=== PATIENT | female | born 1985 | race Caucasian/White ===

== ENCOUNTER 2017-11-08 03:55 | Inpatient (IN) | payer SELFPAY ==
[2017-11-08] MEDS ORDERED: Propofol 1,000 MG/100 ML VIAL IV ONE (04:05)
[2017-11-08 04:34] LABS: #Basophils 0.1 thou/uL (0.0-0.2); #Eosinphils 0.1 thou/uL (0.0-0.7); #Lymphocytes 1.7 thou/uL (1.20-3.40); #Monocytes 0.6 thou/uL (0.11-0.59); %Basophils 0.7 % (0.0-1.0); %Eosinophils 0.6 % (0.0-10.0); %Lymphocytes 16.1 % (21.0-51.0); %Monocytes 5.8 % (0.0-10.0); %Neutrophils 76.8 % (42.0-75.0); Hemoglobin 13.2 g/dL (12.0-16.0); Mean Corpuscular HGB CONC 34.9 g/dL (32.0-36.0); Mean Corpuscular Hemoglobin 33.5 pg (27.0-31.0); Mean Platelet Volume 7.2 fL (7.4-10.4); Platelet Count 256 thou/uL (130-400); RBC Distribution Width 11.7 % (11.5-14.5); Red Blood Cell (RBC) Count 3.93 mill/uL (4.20-5.40); White Blood Cell (WBC) Count 10.4 thou/uL (4.8-10.8)
[2017-11-08 04:39] LABS: BHCG - Serum Negative (NEGATIVE); Pregs Control Background? CLEAR/WHITE (CLR/WHITE); Pregs Control Bar Appear? YES (CONTROL BAR)
[2017-11-08 04:42] LABS: Bilirubin Negative (Negative); Blood, Urine Trace (Negative); Clarity CLEAR (Clear); Glucose, Urine (Dipstick) Negative (Negative); Leukocyte Negative (Negative); Nitrite Negative (Negative); Protein, Urine (Dipstick) 30 mg/dL (Neg-Trace); Specific Gravity, Urine 1.007 (1.002-1.036); Urobilinogen 0.2 mg/dL (0.2-1.0)
[2017-11-08 04:45] LABS: Bacteria/HPF None Seen HPF (None Seen); Hyaline Casts/LPF 4-6 HYALINE CAST LPF (0-3 Hyaline); Pathc Cast-AUWi Flag 1.16 (0-2.49); RBC/HPF 0-3 HPF (0-3); WBC/HPF 0-3 HPF (0-3)
[2017-11-08 04:46] LABS: Acetaminophen Less than 6.0 mcg/mL (10.0-30.0); Alcohol 99 mg/dL (Less than 10); Salicylate Less than 8.0 mg/dL (15.0-30.0)
[2017-11-08 04:49] LABS: ALT (SGPT) 24 U/L (8-55); AST (SGOT) 21 U/L (5-34); Alkaline Phosphatase 46 U/L (40-150); Anion Gap 13 mmol/L (10-20); BUN (Urea Nitrogen) 9 mg/dL (7.0-18.7); Bilirubin, Total 0.4 mg/dL (0.2-1.2); CK (CPK) 166 U/L (29-168); Calc. Creatinine Clearance 0 mL/min (70-130); Calcium 8.4 mg/dL (7.8-10.44); Carbon Dioxide 19 mmol/L (22-29); Chloride 113 mmol/L (98-107); Estimated GFR-MDRD 83; Globulin 3.1 g/dL (2.4-3.5); Glucose 133 mg/dL (70-105); Lipase 31 U/L (8-78); Potassium 3.9 mmol/L (3.5-5.1); Protein, Total 7.1 g/dL (6.0-8.3); Sodium 141 mmol/L (136-145)
[2017-11-08 04:52] LABS: CO2 Tension 31.4 mmHg (35.0-45.0); pH, Arterial 7.42 (7.35-7.45)
[2017-11-08 04:52] LABS: CKMB 1.6 ng/mL (0-6.6); Troponin I Less than 0.010 ng/mL (< 0.028)
[2017-11-08 04:53] LABS: Actual Bicarbonate (HCO3a) 19.8 mEq/L (22-26); Analyzer IN Cardio ER; Base Excess (BEa) -3.7 mEq/L (0 (+/-) 2.5); Calcium, Ionized 1.2 mmol/L (1.12-1.30); Hemoglobin (Hb) 12.6 g/dL (12.0-16.0)
[2017-11-08 04:53] LABS: Amphetamine Not Detected (NotDetected); Barbiturates Screen Not Detected (NotDetected); Benzodiazepine Screen Not Detected (NotDetected); Cocaine Metabolite Screen Not Detected (NotDetected); Medtox Control Line Valid? VALID (VALID); Medtox Reader # READER 1; Methadone Not Detected (NotDetected); Methamphetamine Not Detected (NotDetected); Opiate Screen Not Detected (NotDetected); Oxycodone Screen Not Detected (NotDetected); Phencyclidine (PCP) Not Detected (NotDetected); THC/Cannabinoid Screen Detected (NotDetected); Tricyclic Screen Not Detected (NotDetected)
[2017-11-08 04:54] LABS: Puncture Site RRA
[2017-11-08 05:06] LABS: Thyroid Stimulating Hormone 1.3615 uIU/mL (0.35-4.94)
[2017-11-08] MEDS ORDERED: Ondansetron HCl/PF 4 MG/2 ML Vial IVP PRN (05:29)
[2017-11-08] MEDS ORDERED: CCU Electrolyte Replacement 1 EACH IVPB SCH (05:29)
[2017-11-08] MEDS ORDERED: Acetaminophen 650 MG Suppository PR PRN (05:29)
[2017-11-08] MEDS ORDERED: Milk Of Magnesia 30 ML UDCUP PO PRN (05:29)
[2017-11-08] MEDS ORDERED: Ventilator Sedation Protocol 1 EACH FS SCH (05:30)
[2017-11-08] MEDS ORDERED: Potassium Phosphate 15 MMOL in Sodium Chloride 0.9% 250 ML 250 ML IV PRN (05:41)
[2017-11-08] MEDS ORDERED: CCU ELECTROLYTE REPLACEMENT PROTOCOL FS PRN (05:41)
[2017-11-08] MEDS ORDERED: Potassium Chloride 20 MEQ TAB PO PRN (05:41)
[2017-11-08] MEDS ORDERED: Potassium Chloride 40 MEQ in Sodium Chloride 0.9% 250 ML 250 ML IVPB PRN (05:41)
[2017-11-08] MEDS ORDERED: Magnesium 2 GM/NS 0.9% 100 ML 2 GM in Premix Bag 1 BAG IVPB PRN (05:41)
[2017-11-08] MEDS ORDERED: Potassium Phosphate 9 MMOL in Sodium Chloride 0.9% 100 ML IVPB PRN (05:41)
[2017-11-08] MEDS ORDERED: Potassium Chloride 40 MEQ in Premix Bag 1 BAG IVPB PRN (05:41)
[2017-11-08] MEDS ORDERED: Magnesium Oxide 400 MG TAB PO PRN ×2 (05:41)
[2017-11-08] MEDS ORDERED: Potassium Phosphate 12 MMOL in Sodium Chloride 0.9% 250 ML 250 ML IV PRN (05:41)
[2017-11-08] MEDS ORDERED: Propofol BOLUS 1,000 MG/100 ML VIAL IV PRN (05:42)
[2017-11-08] MEDS ORDERED: Fentanyl BOLUS 250 ML IVPB PRN (05:42)
[2017-11-08] MEDS ORDERED: fentaNYL Citrate/PF 2,000 MCG in Sodium Chloride 0.9% 60 ML IV SCH (05:42)
[2017-11-08] MEDS ORDERED: Morphine 4 MG/ML VIAL SLOW IVP PRN (05:42)
[2017-11-08] MEDS ORDERED: DISCONTINUE PREVIOUS NARCOTIC PAIN MEDICATIONS AND BENZODIAZEPINES FS SCH (05:42)
[2017-11-08] MEDS ORDERED: Labetalol HCl 100 MG/20 ML VIAL SLOW IVP PRN (05:57)
--- NOTE | 2017-11-08 06:13 | HP ---
PRIMARY CARE PHYSICIAN: None. PRESENTING COMPLAINT: Overdosed on medications. HISTORY OF PRESENT ILLNESS: Ms. Malik Pablo is a 32-year-old female with a past medical history of hypertension, bipolar disorder, alcohol dependence and schizophrenia, who has been off medications for an extended period of time, who was brought to the [facility] after she overdosed on medications. She was said to have got into her grandfather's medicine cabinet and took multiple pills including muscle relaxer and blood pressure medications. When she was taken to the [place], her heart rate was about 46 and her Arden coma scale was about 5. She was then intubated for airway protection. LABORATORY DATA: Show fairly normal CBC as well as serum chemistry with slightly reduced bicarbonate of 19. Ammonia was 46. Troponin was less than 0.010. test was negative. Blood gas showed pH of 7.42 with pO2 of 377 and pCO2 of 31. Urine toxicology was positive for cannabis and elevated plasma alcohol level. She had a brain CT and chest x-ray done, which showed no acute pathology. She has been admitted for acute respiratory failure and medication overdose. PAST MEDICAL HISTORY: As stated in the HPI. PAST SURGICAL HISTORY: None. FAMILY HISTORY: Reviewed and noncontributory. SOCIAL HISTORY: She has a history of significant alcohol intake, taking at least 10 drinks on a daily basis. Date of last drink is unknown. She also smokes marijuana and smokes cigarettes (1 pack per day). ALLERGIES: No known drug allergies according to family. HOME MEDICATIONS: None. REVIEW OF SYSTEMS: Unable to obtain as the patient is intubated and sedated. PHYSICAL EXAMINATION: VITAL SIGNS: Blood pressure 175/126, pulse rate 77, oxygen saturation 100% on mechanical ventilation, respiratory rate 12. CONSTITUTIONAL: Not in acute distress, intubated and sedated, looks comfortable. NECK: Supple. No JVD. RESPIRATORY: Reduced breath sounds bilaterally with bronchial sounds. CARDIOVASCULAR: S1 and S2, only regular rate and rhythm. No murmurs, rubs, or gallops. ABDOMEN: Soft, nontender, nondistended. Bowel sounds normoactive. EYES: Dilated. Pupils are minimally responsive to light. NEUROLOGIC: Unable to cooperate with examination as she is sedated. SKIN: Warm, dry, well perfused. No rashes or lesions. PSYCHIATRIC: Unable to assess. MUSCULOSKELETAL: No edema. No skeletal abnormalities. IMAGING: As stated in HPI. LABORATORY DATA: Showed no significant abnormalities apart from bicarbonate of 19 and urine toxicology positive for cannabinoids and elevated plasma-alcohol level. ASSESSMENT AND PLAN: 1. Acute respiratory failure: This is likely secondary to medication overdose. However, the exact medications she took is unclear. While at the [place], she has been given a dose of Narcan, 5 mg IV of metoprolol, midazolam, a liter of normal saline, fentanyl, ketamine, and Romazicon. We will monitor her vital signs closely, repeat labs, VAP bundle, trend troponin. Pepcid 20 mg q.12 hours. 2. Intentional Medication overdose: As above. 3. Hypertensive urgency: Patient has a history of hypertension, but has not taken any medications in a while. We will place on p.r.n. hydralazine and labetalol for systolic blood pressure greater than 180. 4. Alcohol Dependence. Patient is reportedly dependent on alcohol and drinks 10 alcoholic drinks daily. We will place on CIWA protocol. 5. Hypothermia. This is likely also from medications. She has been placed on a Darvin Hugger. We will monitor vital signs closely. We will consult Pulmonary. CODE STATUS: FULL CODE. Deep venous thrombosis prophylaxis, enoxaparin. MTDD
[2017-11-08] MEDS ORDERED: Multivitamins, Adult 10 ML, Folic Acid 1 MG, Thiamine HCl 100 MG in Dextrose 5 %-0.45 %... IV ONE (07:00)
[2017-11-08 09:16] LABS: Troponin I Less than 0.010 ng/mL (< 0.028)
--- NOTE | 2017-11-08 09:26 | RAD ---
CHEST 1 VIEW: Date: 11/08/17 HISTORY: Overdose. Intubated. COMPARISON: Earlier exam on the same date. FINDINGS: Cardiac silhouette magnified. Pulmonary vasculature upper limits of normal. Mediastinum midline. Endo tracheal catheter unchanged in position. Nasogastric tube descends to the abdomen with the proximal p ort at the level of the GE junction. No lobar consolidation or evidence of pneumothorax. Old left rib fracture now evident. IMPRESSION: Nasogastric tube proximal port at the level of the GE junction. Please consider advancing approximate ly 10.0 cm for better positioning. POS: [facility]
[2017-11-08] MEDS: Famotidine 40 MG/4 ML VIAL SLOW IVP SCH ×2 (10:00→20:24)
--- NOTE | 2017-11-08 10:57 | CT ---
PRELIMINARY REPORT/[facility]/EMERGENTY AFTER-HOURS PROCEDURE CT Head Without Intravenous Contrast EXAM DATE/TIME: Exam ordered 11/08/2017 4:33 AM CLINICAL HISTORY: 32 years old, female; Signs and symptoms; Altered mental status/memory loss; Patient HX: Od on multip le meds, intubated at ed, 21 at the lip. BP is 160/110. BP has been elevated since intubation. Pt giv en metoprolol. Pt has HX of HTN, schizo, depression and bipolar. Pt has attempted suicide via od in the past. Pt was breathing 6 times a minute prior to intubation. TECHNIQUE: Axial computed tomography images of the head/brain without intravenous contrast. COMPARISON: No relevant prior studies available. FINDINGS: Brain: Mild generalized volume loss of the brain. No hemorrhage. No significant white matter disease. Ventricles: Unremarkable. No ventriculomegaly. Bones/joints: Unremarkable. No acute fracture. Soft tissues: Unremarkable. Sinuses: Unremarkable as visualized. No acute sinusitis. Mastoid air cells: Unremarkable as visualized. No mastoid effusion. IMPRESSION: No acute findings. Thank you for allowing us to participate in the care of your patient. Dictated and Authenticated by: Kevin Mcmillan MD 11/08/2017 5:00 AM Central Time ([place] & [place]) FINAL REPORT EMERGENCY AFTER HOURS CT HEAD NONCONTRAST: Date: 11/08/17 Time: 0434 hours HISTORY: Altered mental status. FINDINGS/IMPRESSION: Findings agree with the preliminary report by Wes. No acute intracranial abnormalities are demonstra brandee on noncontrast CT head. POS: [facility]
[2017-11-08] MEDS: Enoxaparin Sodium 40 MG/0.4 ML SYRINGE SC SCH (11:02)
--- NOTE | 2017-11-08 17:44 | CON ---
DATE OF CONSULTATION: 11/08/2017 HISTORY OF PRESENT ILLNESS: A 32-year-old female, status post overdose, status post intubation for m ental status change and mother at the bedside. 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 Patient stay s with her mother. She has a history of excessive alcohol intake. Apparently, she is unemployed, bu t apparently drinks 10 drinks a day. Smokes marijuana. She went to visit her grandparents where she took grandparent's medication and then shortly thereafter called 911. In [place], she had a Gl asgow coma score of 5. She was intubated and transferred here. She is on Diprivan. She is still intubated. Diprivan is being turned off. Medicine presumably taken from her dad include some kind of muscle relaxer, though patient was given several different medications in [place] prior to intubation, 100 of fentanyl, Versed 4 mg, aman mine 200 mg, Narcan 0.4, Romazicon 0.5, metoprolol 5 mg. PAST MEDICAL HISTORY: Pertinent for bipolar disorder, substance abuse, tobacco abuse. She sees [facility] in [place]. It is unclear whether she is still seeing them, unable to verify the medication. PAST SURGICAL HISTORY: Tonsillectomy. REVIEW OF SYSTEMS: Unobtainable. PHYSICAL EXAMINATION: VITAL SIGNS: She is off sedation, breathing 10 times with the vent. Pulse 81, blood pressure is 153 /100, sats 90%. CHEST: Decreased breath sounds, no wheezing. CARDIAC: Normal S1, S2, no gallops. ABDOMEN: Soft. NEUROLOGIC: Sedated. LABORATORY DATA: White count 10,000, H and H 13 and 34, platelet count normal. PO2 is 377, pCO2 31% FiO2 100%. Electrolytes are normal. Toxicology screen reveals cannabinoids. Alcohol level of 99. Salicylate is normal. Chest x-ray is clear. IMPRESSION: 1. Overdose on an unknown medication, presumably some kind of muscle relaxer. 2. History of bipolar disorder. 3. Alcohol abuse. We will hold sedation. Otherwise, continue banana bag, IV fluids hydration, DVT prophylaxis as meenakshi ated. When she is awake and responsive, we will extubate and wean. [id number] critical care time.
[2017-11-08] MEDS: D5 1/2 NS w/20 mEq KCL 1,000 ML IV SCH (18:15)
[2017-11-09 04:52] LABS: Band 5 % (5-11); Hemoglobin 12.1 g/dL (12.0-16.0); Lymphocytes 9 % (21-51); MDiff Complete? YES; Mean Corpuscular HGB CONC 33.6 g/dL (32.0-36.0); Mean Corpuscular Volume 98.3 fl (81.0-99.0); Mean Platelet Volume 7.7 fL (7.4-10.4); Monocytes 9 % (0-10); Neutrophil 77 % (42-75); PLT Morphology Comment Appears Adequate; Platelet Count 168 thou/uL (130-400); RBC Distribution Width 11.8 % (11.5-14.5); Red Blood Cell (RBC) Count 3.67 mill/uL (4.20-5.40); White Blood Cell (WBC) Count 12.7 thou/uL (4.8-10.8)
[2017-11-09 05:03] LABS: ALT (SGPT) 21 U/L (8-55); AST (SGOT) 17 U/L (5-34); Albumin 3.8 g/dL (3.5-5.0); Alkaline Phosphatase 46 U/L (40-150); Anion Gap 14 mmol/L (10-20); BUN (Urea Nitrogen) 16 mg/dL (7.0-18.7); Bilirubin, Total 0.6 mg/dL (0.2-1.2); Calc. Creatinine Clearance 57 mL/min (70-130); Calcium 8.4 mg/dL (7.8-10.44); Carbon Dioxide 21 mmol/L (22-29); Chloride 115 mmol/L (98-107); Estimated GFR-MDRD 35; Globulin 2.8 g/dL (2.4-3.5); Glucose 141 mg/dL (70-105); Magnesium 1.9 mg/dL (1.6-2.6); Phosphorus 4.4 mg/dL (2.3-4.7); Potassium 4.3 mmol/L (3.5-5.1); Protein, Total 6.6 g/dL (6.0-8.3); Sodium 146 mmol/L (136-145)
[2017-11-09 06:45] LABS: Puncture Site RB
[2017-11-09 06:47] LABS: Actual Bicarbonate (HCO3a) 23.1 mEq/L (22-26); Base Excess (BEa) -2.2 mEq/L (0 (+/-) 2.5); CO2 Tension 41.6 mmHg (35.0-45.0); pH, Arterial 7.36 (7.35-7.45)
[2017-11-09 06:48] LABS: Calcium, Ionized 1.2 mmol/L (1.12-1.30); Hematocrit-ABG 35.8 % (36.0-47.0); Hemoglobin (Hb) 11.8 g/dL (12.0-16.0)
--- NOTE | 2017-11-09 08:49 | RAD ---
CHEST 1 VIEW: Date: 11/09/17 HISTORY: Ventilated patient. Respiratory distress. COMPARISON: 11/08/17. FINDINGS: Portable semiupright chest radiograph demonstrates an endotracheal tube and nasogastric tube. Diminis hed lung volumes. Patchy opacities in the right lung base. No pneumothorax. Stable configuration of t he cardiac silhouette. IMPRESSION: 1. ET and NG tubes as above. 2. Patchy opacities in right lung base, similar to the previous examination. Continued surveillance. POS: [facility]
--- NOTE | 2017-11-09 08:53 | PRG ---
DATE OF SERVICE: 11/09/2017 Overdose on baclofen and losartan, atenolol, apparently her grandfather's medications, unknown quanti ty that was taken. PHYSICAL EXAMINATION: VITAL SIGNS: Sats are 94 on 28% FiO2, pulse 76, blood pressure 139/75, respiration 20. GENERAL: She is encephalopathic, though she does squeeze and moves all 4 extremities. She has had no sedation now in the last 24 hours, I's and O's are 1754 in, 1684 out. CHEST: Chest reveals decreased breath sounds, no wheezing. CARDIAC: Normal S1, S2, no gallops. ABDOMEN: Soft. NEURO: Neurologically encephalopathic. LABORATORY: White count 12,000, H&H 12 and 36, platelet count 168, pO2 is 93, pCO2 41.36, rate of 10 . Creatinine is increased to 1.7. IMPRESSION: 1. Bipolar schizophrenic. 3. Overdose. 3. Major depression. 4. Renal failure. PLAN: Continue slow hydration. Start low dose nutrition. Avoid sedation. When she wakes up. consi sreekanth weaning. She needs ongoing counseling. One-half hour critical care time.
[2017-11-09] MEDS: Enoxaparin Sodium 40 MG/0.4 ML SYRINGE SC SCH (09:00)
[2017-11-09] MEDS ORDERED: Propofol 1,000 MG/100 ML VIAL IV ONE ×2 (10:44→15:26)
[2017-11-09] MEDS: Famotidine 40 MG/4 ML VIAL SLOW IVP SCH ×2 (11:47→20:33)
[2017-11-09] MEDS: Thiamine HCl 200 MG/2 ML VIAL SLOW IVP SCH (11:48)
[2017-11-09] MEDS: D5 1/2 NS w/20 mEq KCL 1,000 ML IV SCH ×2 (11:55→20:31)
--- NOTE | 2017-11-09 12:40 | PDOC.PN ---
- Subjective Encounter Start Date: 11/09/17 Encounter Start Time: 09:30 -: old records requested/rev Follow up for overdose, encephaloapthy, acute hypoxemic respiratory failure Pt seen and examined, chart reviewed in its entirety, this is my first vist with this patient Admitted yesterdday with toxic encephalopathy after intentional overdose with parent's medicine, assumed muscle relaxants. Pt off of sedation, no purposeful movement, told SIMV, labs reviewed. Mom at bedside. Discussed advanced care plan, current plan is to continue full support and give time for medicines to wear off. No F/C, no D/c, no acute events overnight otherwise. ROs not obtainable due to encephalopathy - Objective Resuscitation Status: Resuscitation Status FULL:Full Resuscitation MAR Reviewed: Yes Vital Signs & Weight: Vital Signs (12 hours) Temp Pulse Resp BP Pulse Ox 11/09/17 12:00 99.1 F 13 11/09/17 10:49 111 H 183/110 H 11/09/17 10:00 14 11/09/17 08:46 75 139/75 11/09/17 08:00 99.5 F 111 H 16 98 11/09/17 05:57 10 L 11/09/17 04:00 98.7 F 10 L 11/09/17 02:45 64 11/09/17 02:00 12 Weight Weight 178 lb 9.191 oz Most Recent Monitor Data Heart Rate from ECG 94 NIBP 134/81 NIBP BP-Mean 98 Respiration from ECG 17 SpO2 93 I&O: 11/08/17 11/09/17 11/10/17 06:59 06:59 06:59 Intake Total 1754 Output Total 1685 315 Balance 69 -315 Result Diagrams: 11/09/17 04:20 11/09/17 04:20 Additional Labs: Accuchecks 11/08/17 19:57 POC Glucose 125 H Radiology Reviewed by me: Yes EKG Reviewed by me: Yes Phys Exam - Physical Examination Constitutional: NAD HEENT: PERRLA, moist MMs, sclera anicteric, oral pharynx no lesions Neck: no nodes, no JVD, supple, full ROM Respiratory: no wheezing, no rales, no rhonchi, clear to auscultation bilateral Cardiovascular: RRR, no significant murmur, no rub Gastrointestinal: soft, non-tender, no distention, positive bowel sounds Musculoskeletal: pulses present, edema present Lymphatic: no nodes Skin: no rash, normal turgor, cap refill <2 seconds Dx/Plan (1) Toxic metabolic encephalopathy Code(s): G92 - TOXIC ENCEPHALOPATHY Status: Acute Comment: moved and squeezed hands per Dr Landon. hold sedatives, allow to wake. (2) Acute hypoxemic respiratory failure Code(s): J96.01 - ACUTE RESPIRATORY FAILURE WITH HYPOXIA Status: Acute Comment: wean vent when wakes up (3) Intentional overdose of drug in tablet form Code(s): T50.902A - POISONING BY UNSP DRUG/MEDS/BIOL SUBST, SELF-HARM, INIT Status: Acute Comment: baclofen, atenolol, losartan, by history (4) Bipolar 1 disorder Code(s): F31.9 - BIPOLAR DISORDER, UNSPECIFIED Status: Chronic (5) Schizophrenia Code(s): F20.9 - SCHIZOPHRENIA, UNSPECIFIED Status: Chronic Qualifiers: Schizophrenia type: unspecified Qualified Code(s): F20.9 - Schizophrenia, unspecified (6) CITLALI (acute kidney injury) Code(s): N17.9 - ACUTE KIDNEY FAILURE, UNSPECIFIED Status: Acute Comment: Cr 0.8 up to 1.70. monitor, hydrate - Plan cont current plan of care, plan discussed w/ family, respiratory therapy, DVT proph w/SCDs 16 minutes of the visit were spent discussing advanced care plan * .
[2017-11-09 15:00] LABS: Actual Bicarbonate (HCO3a) 60.9 mEq/L (22-26); O2 Tension (PaO2) 60.9 mmHg (80.0-100.0); pH, Arterial 7.41 (7.35-7.45)
[2017-11-09 15:01] LABS: Base Excess (BEa) -1.2 mEq/L (0 (+/-) 2.5)
[2017-11-09 15:02] LABS: Hematocrit-ABG 34.8 % (36.0-47.0); Hemoglobin (Hb) 11.8 g/dL (12.0-16.0)
[2017-11-09 15:03] LABS: Calcium, Ionized 1.2 mmol/L (1.12-1.30); Puncture Site LR
[2017-11-09] MEDS: Propofol 1,000 MG/100 ML VIAL IV PRN (20:50)
[2017-11-10] MEDS: Propofol 1,000 MG/100 ML VIAL IV PRN ×5 (01:28→22:21)
[2017-11-10] MEDS: hydrALAZINE 20 MG/ML VIAL SLOW IVP PRN (04:48)
[2017-11-10 04:55] LABS: Hemoglobin 11.6 g/dL (12.0-16.0); Mean Corpuscular HGB CONC 33.9 g/dL (32.0-36.0); Mean Corpuscular Hemoglobin 33.2 pg (27.0-31.0); Mean Corpuscular Volume 97.7 fl (81.0-99.0); Mean Platelet Volume 8.5 fL (7.4-10.4); Platelet Count 142 thou/uL (130-400); RBC Distribution Width 11.7 % (11.5-14.5); Red Blood Cell (RBC) Count 3.49 mill/uL (4.20-5.40); White Blood Cell (WBC) Count 14.2 thou/uL (4.8-10.8)
[2017-11-10 04:57] LABS: ALT (SGPT) 30 U/L (8-55); AST (SGOT) 35 U/L (5-34); Albumin 3.5 g/dL (3.5-5.0); Alkaline Phosphatase 58 U/L (40-150); Anion Gap 12 mmol/L (10-20); BUN (Urea Nitrogen) 17 mg/dL (7.0-18.7); Bilirubin, Total 0.8 mg/dL (0.2-1.2); Calc. Creatinine Clearance 66 mL/min (70-130); Calcium 8.6 mg/dL (7.8-10.44); Carbon Dioxide 23 mmol/L (22-29); Chloride 115 mmol/L (98-107); Estimated GFR-MDRD 38; Glucose 120 mg/dL (70-105); Magnesium 2.3 mg/dL (1.6-2.6); Potassium 3.7 mmol/L (3.5-5.1); Protein, Total 6.5 g/dL (6.0-8.3); Sodium 146 mmol/L (136-145)
[2017-11-10 05:14] LABS: Band 3 % (5-11); Lymphocytes 8 % (21-51); MDiff Complete? YES; Monocytes 10 % (0-10); Neutrophil 79 % (42-75); PLT Morphology Comment Appears Adequate; RBC Morphology Normal
[2017-11-10 07:58] LABS: Base Excess (BEa) -0.9 mEq/L (0 (+/-) 2.5); CO2 Tension 30.9 mmHg (35.0-45.0); Hematocrit-ABG 34.5 % (36.0-47.0); Hemoglobin (Hb) 11.7 g/dL (12.0-16.0); O2 Tension (PaO2) 80.1 mmHg (80.0-100.0); pH, Arterial 7.47 (7.35-7.45)
[2017-11-10 07:59] LABS: ALV-art Gradient 306.075 (0-20); Calcium, Ionized 1.2 mmol/L (1.12-1.30); Puncture Site RRA
--- NOTE | 2017-11-10 08:40 | RAD ---
SINGLE VIEW OF THE CHEST: Comparison: 11-09-17 History: Respiratory failure. On ventilator. FINDINGS: Single view of the chest shows a normal sized cardiomediastinal silhouette. Lines and tubes are uncha nged in position. There is opacity obscuring the right hemidiaphragm which may represent a pleural e ffusion and adjacent atelectasis. There are remote left rib fractures. IMPRESSION: Right pleural effusion with adjacent atelectasis. POS: [facility]
[2017-11-10] MEDS ORDERED: Pancrelipase DR 12000 1 CAP FS PRN (08:49)
[2017-11-10] MEDS ORDERED: Sodium Bicarbonate Tab 325 MG TAB PER TUBE PRN (08:49)
--- NOTE | 2017-11-10 08:56 | PRG ---
DATE OF SERVICE: 11/10/2017 This morning sedation is withheld, she became agitated. PHYSICAL EXAMINATION: VITAL SIGNS: Blood pressure is 172/100, respiration 24, temperature 99, sats in the 90s. Clearly ve ry encephalopathic. I's & O's have been 1934 in, 1735 out. CHEST: Chest reveals decreased breath sounds, bilateral rhonchi. CARDIAC: Sinus tachycardia. ABDOMEN: Soft, no mass. LABORATORY DATA: White count 14,000, H&H 11 and 34, platelet count 142, pO2 was 80, pCO2 30%, 47, ra te of 10, 60%, 5 of tidal volume. Creatinine 1.57. GFR is 38. IMPRESSION: 1. Right-sided pneumonia, aspiration. 2. Metabolic encephalopathy. 3. Bipolar disorder. 4. Overdose. PLAN: She is not weanable. I am restarting home medication including Seroquel, Depakote and risperi done. Will start nutrition and supportive care. Mother is at the bedside. She will try and get a list of her medication from home. One-half hour critical care time.
[2017-11-10] MEDS ORDERED: Divalproex Sodium DR 500 MG TAB PO SCH (09:00)
[2017-11-10] MEDS: risperiDONE 0.25 MG TAB PO SCH ×2 (09:03→20:14)
[2017-11-10] MEDS: Lorazepam 2 MG/ML VIAL SLOW IVP PRN ×3 (09:03→19:21)
[2017-11-10] MEDS: Enoxaparin Sodium 40 MG/0.4 ML SYRINGE SC SCH (09:04)
[2017-11-10] MEDS: Piperacillin/Tazobactam 3.375 GM in Sodium Chloride 0.9% 100 ML IVPB SCH ×3 (09:04→20:14)
[2017-11-10] MEDS: Famotidine 40 MG/4 ML VIAL SLOW IVP SCH ×2 (09:04→20:14)
[2017-11-10] MEDS: Thiamine HCl 200 MG/2 ML VIAL SLOW IVP SCH (09:05)
[2017-11-10] MEDS: D5 1/2 NS w/20 mEq KCL 1,000 ML IV SCH ×2 (09:13→23:08)
--- NOTE | 2017-11-10 11:55 | PDOC.PN ---
- Subjective Encounter Start Date: 11/10/17 Encounter Start Time: 10:00 Pt agitated overnight, moving all 4 extremeties by report, placed on propofol andincreased to 22/hr. overbreathing vent, not arousable at present. Mom at bedside, updated labs reviewed. No F/c, no N/V/d/C, no other acute events. ROS not obtainable due to sedated and intubated status - Objective Resuscitation Status: Resuscitation Status FULL:Full Resuscitation MAR Reviewed: Yes Vital Signs & Weight: Vital Signs (12 hours) Temp Pulse Resp BP Pulse Ox 11/10/17 11:42 98 157/94 H 11/10/17 10:00 17 11/10/17 08:00 99.9 F H 89 17 97 11/10/17 06:47 96 166/105 H 11/10/17 06:00 33 H 11/10/17 04:48 78 11/10/17 04:00 99 F 22 H 11/10/17 02:32 78 11/10/17 02:00 18 11/10/17 00:00 99.1 F 26 H Weight Admit Weight 178 lb Weight 169 lb 8.568 oz Most Recent Monitor Data Heart Rate from ECG 94 NIBP 157/94 NIBP BP-Mean 113 Respiration from ECG 30 SpO2 96 I&O: 11/09/17 11/10/17 11/11/17 06:59 06:59 06:59 Intake Total 1754 1934 Output Total 1685 1735 260 Balance 69 199 -260 Result Diagrams: 11/10/17 03:43 11/10/17 03:43 Radiology Reviewed by me: Yes EKG Reviewed by me: Yes Phys Exam - Physical Examination Constitutional: NAD HEENT: PERRLA, moist MMs, sclera anicteric, oral pharynx no lesions orally intubated Neck: no nodes, no JVD, supple, full ROM Respiratory: no wheezing, no rales, no rhonchi, clear to auscultation bilateral Cardiovascular: RRR, no significant murmur, no rub Gastrointestinal: soft, non-tender, no distention, positive bowel sounds Musculoskeletal: no edema, pulses present Lymphatic: no nodes Skin: no rash, normal turgor, cap refill <2 seconds Dx/Plan (1) Toxic metabolic encephalopathy Code(s): G92 - TOXIC ENCEPHALOPATHY Status: Acute Comment: moved and squeezed hands per Dr Landon. hold sedatives, allow to wake. (2) Acute hypoxemic respiratory failure Code(s): J96.01 - ACUTE RESPIRATORY FAILURE WITH HYPOXIA Status: Acute Comment: wean vent when wakes up (3) Intentional overdose of drug in tablet form Code(s): T50.902A - POISONING BY UNSP DRUG/MEDS/BIOL SUBST, SELF-HARM, INIT Status: Acute Comment: baclofen, atenolol, losartan, by history (4) Bipolar 1 disorder Code(s): F31.9 - BIPOLAR DISORDER, UNSPECIFIED Status: Chronic (5) Schizophrenia Code(s): F20.9 - SCHIZOPHRENIA, UNSPECIFIED Status: Chronic Qualifiers: Schizophrenia type: unspecified Qualified Code(s): F20.9 - Schizophrenia, unspecified (6) CITLALI (acute kidney injury) Code(s): N17.9 - ACUTE KIDNEY FAILURE, UNSPECIFIED Status: Acute Comment: Cr 0.8 up to 1.70, down to 1.5. monitor, hydrate - Plan cont current plan of care, plan discussed w/ family, continue antibiotics, PT/OT , respiratory therapy * .
[2017-11-11] MEDS: Piperacillin/Tazobactam 3.375 GM in Sodium Chloride 0.9% 100 ML IVPB SCH ×4 (02:50→20:49)
[2017-11-11] MEDS: Propofol 1,000 MG/100 ML VIAL IV PRN ×5 (02:50→21:06)
[2017-11-11 05:07] LABS: Band 1 % (5-11); Eosinophils 1 % (0-10); Lymphocytes 28 % (21-51); MDiff Complete? YES; Mean Corpuscular HGB CONC 33.2 g/dL (32.0-36.0); Mean Corpuscular Hemoglobin 32.5 pg (27.0-31.0); Mean Corpuscular Volume 97.8 fl (81.0-99.0); Mean Platelet Volume 8.7 fL (7.4-10.4); Monocytes 5 % (0-10); Neutrophil 65 % (42-75); PLT Morphology Comment Appears Decreased; Platelet Count 119 thou/uL (130-400); RBC Distribution Width 11.6 % (11.5-14.5); White Blood Cell (WBC) Count 13.4 thou/uL (4.8-10.8)
[2017-11-11 05:16] LABS: ALT (SGPT) 31 U/L (8-55); AST (SGOT) 25 U/L (5-34); Albumin 3.7 g/dL (3.5-5.0); Alkaline Phosphatase 64 U/L (40-150); Anion Gap 12 mmol/L (10-20); BUN (Urea Nitrogen) 18 mg/dL (7.0-18.7); Calc. Creatinine Clearance 72 mL/min (70-130); Calcium 8.6 mg/dL (7.8-10.44); Carbon Dioxide 20 mmol/L (22-29); Chloride 113 mmol/L (98-107); Estimated GFR-MDRD 45; Globulin 3.6 g/dL (2.4-3.5); Glucose 156 mg/dL (70-105); Potassium 4.3 mmol/L (3.5-5.1); Protein, Total 7.3 g/dL (6.0-8.3); Sodium 141 mmol/L (136-145)
--- NOTE | 2017-11-11 05:32 | PRG ---
DATE OF SERVICE: 11/11/2017 She is intubated on the vent, sedated. She was restarted on her bipolar medication. PHYSICAL EXAMINATION: VITAL SIGNS: Blood pressure 152/93, pulse 113, respiration 20, temperature 98. She is still on Dipr rimma drip. CHEST: Chest revealed decreased breath sounds, no wheezing. CARDIAC: Normal S1, S2, no gallops. ABDOMEN: Soft, no masses. LABORATORY AND X-RAY FINDINGS: Chest x-ray this morning shows there is small right-sided infiltrate. IMPRESSION: 1. Status post overdose on beta blockers and baclofen. 2. Bipolar. 3. Encephalopathy. 4. Possibly pneumonia. PLAN: Hopefully, start weaning slowly. Continue nutrition, PT. Empiric antibiotics. I will follow. One-half hour critical care time.
[2017-11-11 07:01] LABS: pH, Arterial 7.44 (7.35-7.45)
[2017-11-11 07:02] LABS: ALV-art Gradient 156.325 (0-20); Actual Bicarbonate (HCO3a) 20.2 mEq/L (22-26); Base Excess (BEa) -3.1 mEq/L (0 (+/-) 2.5); CO2 Tension 30.5 mmHg (35.0-45.0); Calcium, Ionized 1.2 mmol/L (1.12-1.30); Hemoglobin (Hb) 10.5 g/dL (12.0-16.0); O2 Tension (PaO2) 55.1 mmHg (80.0-100.0); Puncture Site LRA
--- NOTE | 2017-11-11 08:55 | RAD ---
CHEST ONE VIEW: History: Dyspnea. Follow up. Comparison: 11-10-17 FINDINGS: Cardiac silhouette is magnified by projection. Pulmonary vasculature is unremarkable. Opacity at the right base is unchanged in appearance from the prior exam. Mediastinum is midline. Lines and tubes ap pear unchanged in position. hospital monitor leads overlie the chest. IMPRESSION: Right basilar infiltrate, pleural fluid, and other findings are stable. POS: [facility]
[2017-11-11] MEDS: Famotidine 40 MG/4 ML VIAL SLOW IVP SCH ×2 (09:00→21:12)
[2017-11-11] MEDS: Enoxaparin Sodium 40 MG/0.4 ML SYRINGE SC SCH (09:54)
[2017-11-11] MEDS: Thiamine HCl 200 MG/2 ML VIAL SLOW IVP SCH (09:54)
[2017-11-11] MEDS: risperiDONE 0.25 MG TAB PO SCH ×2 (09:55→21:12)
[2017-11-11] MEDS: hydrALAZINE 20 MG/ML VIAL SLOW IVP PRN (13:07)
--- NOTE | 2017-11-11 14:12 | PDOC.PN ---
- Subjective Encounter Start Date: 11/11/17 Encounter Start Time: 10:15 -: non-verbal Pt taken off of sedation earlier, but began thrashing. Given po psych meds, propofol restarted, to start weaning again. No f/c, no N/v/D/c,no acute events otherwise. Renal function improving. ROs not obtainable, no family at bedside at present - Objective Resuscitation Status: Resuscitation Status FULL:Full Resuscitation MAR Reviewed: Yes Vital Signs & Weight: Vital Signs (12 hours) Temp Pulse Resp BP Pulse Ox 11/11/17 13:07 74 155/100 H 11/11/17 12:00 97.9 F 18 11/11/17 10:09 74 155/100 H 11/11/17 10:00 19 11/11/17 08:00 99.2 F 74 16 100 11/11/17 06:23 82 159/105 H 11/11/17 06:00 28 H 11/11/17 04:00 98.5 F 20 Weight Admit Weight 178 lb Weight 172 lb 9.951 oz Most Recent Monitor Data Heart Rate from ECG 88 NIBP 192/115 NIBP BP-Mean 139 Respiration from ECG 18 SpO2 99 I&O: 11/10/17 11/11/17 11/12/17 06:59 06:59 06:59 Intake Total 1934 3518 Output Total 1735 1925 490 Balance 199 1593 -490 Result Diagrams: 11/11/17 04:39 11/11/17 04:39 Radiology Reviewed by me: Yes EKG Reviewed by me: Yes Phys Exam - Physical Examination Constitutional: NAD HEENT: PERRLA, moist MMs, sclera anicteric, oral pharynx no lesions orally intubated Neck: no nodes, no JVD, supple, full ROM Respiratory: no wheezing, no rales, no rhonchi, clear to auscultation bilateral lungs improved Cardiovascular: RRR, no significant murmur, no rub Gastrointestinal: soft, non-tender, no distention, positive bowel sounds Musculoskeletal: no edema, pulses present Lymphatic: no nodes Skin: no rash, normal turgor, cap refill <2 seconds Dx/Plan (1) Toxic metabolic encephalopathy Code(s): G92 - TOXIC ENCEPHALOPATHY Status: Acute Comment: moved and squeezed hands per Dr Landon. hold sedatives, allow to wake. (2) Acute hypoxemic respiratory failure Code(s): J96.01 - ACUTE RESPIRATORY FAILURE WITH HYPOXIA Status: Acute Comment: wean vent when wakes up (3) Intentional overdose of drug in tablet form Code(s): T50.902A - POISONING BY UNSP DRUG/MEDS/BIOL SUBST, SELF-HARM, INIT Status: Acute Comment: baclofen, atenolol, losartan, by history (4) Bipolar 1 disorder Code(s): F31.9 - BIPOLAR DISORDER, UNSPECIFIED Status: Chronic (5) Schizophrenia Code(s): F20.9 - SCHIZOPHRENIA, UNSPECIFIED Status: Chronic Qualifiers: Schizophrenia type: unspecified Qualified Code(s): F20.9 - Schizophrenia, unspecified (6) CITLALI (acute kidney injury) Code(s): N17.9 - ACUTE KIDNEY FAILURE, UNSPECIFIED Status: Acute Comment: Cr 0.8 up to 1.70, down to 1.5 to 1.36. monitor, hydrate - Plan cont current plan of care, continue antibiotics, PT/OT, respiratory therapy, DVT proph w/lovenox * .
[2017-11-11] MEDS: Lorazepam 2 MG/ML VIAL SLOW IVP PRN ×2 (15:28→21:06)
[2017-11-11] MEDS: D5 1/2 NS w/20 mEq KCL 1,000 ML IV SCH (15:29)
[2017-11-11] MEDS: LURASIDONE 20 MG PO SCH (20:48)
[2017-11-12] MEDS: Propofol 1,000 MG/100 ML VIAL IV PRN ×2 (02:00→05:53)
[2017-11-12] MEDS: Piperacillin/Tazobactam 3.375 GM in Sodium Chloride 0.9% 100 ML IVPB SCH ×4 (03:50→21:04)
[2017-11-12 06:19] LABS: ALT (SGPT) 21 U/L (8-55); AST (SGOT) 19 U/L (5-34); Albumin 3.1 g/dL (3.5-5.0); Alkaline Phosphatase 71 U/L (40-150); Anion Gap 15 mmol/L (10-20); BUN (Urea Nitrogen) 18 mg/dL (7.0-18.7); Bilirubin, Total 0.6 mg/dL (0.2-1.2); Calc. Creatinine Clearance 98 mL/min (70-130); Calcium 8.6 mg/dL (7.8-10.44); Carbon Dioxide 18 mmol/L (22-29); Chloride 114 mmol/L (98-107); Estimated GFR-MDRD 62; Globulin 3.2 g/dL (2.4-3.5); Glucose 101 mg/dL (70-105); Potassium 4.6 mmol/L (3.5-5.1); Protein, Total 6.3 g/dL (6.0-8.3); Sodium 142 mmol/L (136-145)
[2017-11-12 06:30] LABS: Band 6 % (5-11); Hemoglobin 10.2 g/dL (12.0-16.0); Lymphocytes 8 % (21-51); MDiff Complete? YES; Mean Corpuscular HGB CONC 33.3 g/dL (32.0-36.0); Mean Corpuscular Hemoglobin 32.8 pg (27.0-31.0); Mean Corpuscular Volume 98.7 fl (81.0-99.0); Mean Platelet Volume 8.8 fL (7.4-10.4); Monocytes 2 % (0-10); Neutrophil 84 % (42-75); Platelet Count 147 thou/uL (130-400); RBC Distribution Width 11.7 % (11.5-14.5); White Blood Cell (WBC) Count 10.8 thou/uL (4.8-10.8)
[2017-11-12 06:57] LABS: Actual Bicarbonate (HCO3a) 21.3 mEq/L (22-26); Base Excess (BEa) -2.4 mEq/L (0 (+/-) 2.5); CO2 Tension 32.3 mmHg (35.0-45.0); Calcium, Ionized 1.2 mmol/L (1.12-1.30); Hematocrit-ABG 25.9 % (36.0-47.0); Hemoglobin (Hb) 8.8 g/dL (12.0-16.0); O2 Tension (PaO2) 97.1 mmHg (80.0-100.0); Puncture Site LRA; pH, Arterial 7.44 (7.35-7.45)
[2017-11-12 06:58] LABS: ALV-art Gradient 112.075 (0-20)
[2017-11-12] MEDS: Enoxaparin Sodium 40 MG/0.4 ML SYRINGE SC SCH (07:51)
[2017-11-12] MEDS: Famotidine 20 MG TAB PO SCH ×2 (07:51→21:03)
--- NOTE | 2017-11-12 07:51 | PRG ---
DATE OF SERVICE: 11/12/2017 Thirty-five minutes critical care time. The patient remains intubated on mechanical ventilation. The nurses tell me that she becomes very ag itated when sedation is decreased and she does not follow any commands specifically. PHYSICAL EXAMINATION: VITAL SIGNS: Temperature is 99.3, pulse 112, blood pressure 132/86. 24 hour intake 3528, output 231 5, weight 174 pounds. HEENT: Her eyes are deviated downward. Oropharynx is clear. NECK: No JVD. LUNGS: Clear without wheezing or rhonchi. CARDIOVASCULAR: S1, S2 regular, without murmur. ABDOMEN: Soft, nontender, nondistended. EXTREMITIES: No clubbing, cyanosis, but she has trace edema. LABORATORY DATA: White blood cell count 10.8, hematocrit 30.6, platelet count 147, pH 7.44, pCO2 of 32, pO2 of 97 on SIMV 10, tidal of 500, PEEP 10, pressure support 10, FiO2 35%. Sodium 142, potassiu m 4.6, chloride 114, CO2 18, BUN 18, creatinine 1.0, glucose 101. ASSESSMENT: 1. Status post polysubstance overdose. 2. Bipolar disorder. 3. Schizophrenia. 4. Encephalopathy. 5. Possible aspiration pneumonia. 6. Acute respiratory failure requiring mechanical ventilation. 7. Mild metabolic acidosis. PLAN: 1. We will attempt to lessen her sedation. I will decrease her PEEP on mechanical ventilation. She is continuing IV antibiotics for presumed aspiration. 2. Continue Seroquel at night. 3. Continue IV thiamine as the patient does have a history of profound alcohol use. 4. Decrease steroid dose.
--- NOTE | 2017-11-12 08:15 | RAD ---
CHEST 1 VIEW: Date: 11/12/17 HISTORY: Dyspnea. Follow-up. COMPARISON: 11/11/17. FINDINGS: Cardiac silhouette remains magnified by projection. Pulmonary vasculature upper limits of normal. Med iastinum midline with lines and tubes unchanged in position. Patchy bibasilar infiltrates, right grea ter than left, are stable. No evidence of pneumothorax. IMPRESSION: Bibasilar infiltrates, right greater than left, and other findings are stable. POS: [facility]
[2017-11-12] MEDS ORDERED: Valproate Sodium 250 mg/5 ml UD Cup PO SCH (09:00)
[2017-11-12] MEDS: Sodium Chloride 0.45% 1,000 ML IV SCH ×2 (09:10→21:59)
[2017-11-12] MEDS: risperiDONE 0.25 MG TAB PO SCH ×2 (09:10→21:06)
[2017-11-12] MEDS: Thiamine HCl 200 MG/2 ML VIAL SLOW IVP SCH (09:14)
[2017-11-12] MEDS: Valproate Sodium 250 mg/5 ml UD Cup PER TUBE SCH (09:16)
[2017-11-12] MEDS: D5 1/2 NS w/20 mEq KCL 1,000 ML IV SCH (09:53)
[2017-11-12] MEDS ORDERED: Haloperidol Lactate 5 MG/ML VIAL ONE (10:48)
[2017-11-12] MEDS ORDERED: Haloperidol Lactate 5 MG/ML VIAL IM SCH (11:00)
--- NOTE | 2017-11-12 11:26 | PDOC.PN ---
- Subjective Encounter Start Date: 11/12/17 Encounter Start Time: 10:20 F/U for intentional drug overdose, hypoxemic resp failure and Schizophrenia and Bipolar disorder Pt extubated about 20 min prior to my visit. No F/c, no N/V/D/C, trying to talk, unintelligible. Since my visit and while typing this note, pt has become combatitive. Haldol 10mg given but not effective. I have ordered Geodon IM ROs not available - Objective Resuscitation Status: Resuscitation Status FULL:Full Resuscitation MAR Reviewed: Yes Vital Signs & Weight: Vital Signs (12 hours) Temp Pulse Resp BP Pulse Ox 11/12/17 09:50 117 H 23 H 98 11/12/17 08:00 99.0 F 80 14 98 11/12/17 07:00 99.0 F 11/12/17 06:22 96 132/89 11/12/17 06:00 18 11/12/17 04:00 99.3 F 12 11/12/17 03:46 82 11/12/17 02:00 15 11/12/17 00:28 112 H 11/12/17 00:00 98.9 F 18 Weight Admit Weight 178 lb Weight 174 lb 6.17 oz Most Recent Monitor Data Heart Rate from ECG 135 NIBP 175/110 NIBP BP-Mean 130 Respiration from ECG 18 SpO2 96 I&O: 11/11/17 11/12/17 11/13/17 06:59 06:59 06:59 Intake Total 3518 3528 Output Total 1925 2415 620 Balance 1593 1113 -620 Result Diagrams: 11/12/17 04:42 11/12/17 04:42 Radiology Reviewed by me: Yes EKG Reviewed by me: Yes Phys Exam - Physical Examination agitated, extubated, confused HEENT: PERRLA, moist MMs, sclera anicteric, oral pharynx no lesions Neck: no nodes, no JVD, supple, full ROM Respiratory: no wheezing, no rales, no rhonchi, clear to auscultation bilateral Cardiovascular: RRR, no significant murmur, no rub Gastrointestinal: soft, non-tender, no distention, positive bowel sounds Musculoskeletal: no edema, pulses present Neurological: non-focal, normal sensation, moves all 4 limbs Lymphatic: no nodes Skin: no rash, normal turgor, cap refill <2 seconds Dx/Plan (1) Toxic metabolic encephalopathy Code(s): G92 - TOXIC ENCEPHALOPATHY Status: Acute Comment: Still confused, but awake enough to be extubated. Agitated, Geodon IM PRN (2) Acute hypoxemic respiratory failure Code(s): J96.01 - ACUTE RESPIRATORY FAILURE WITH HYPOXIA Status: Acute Comment: extubated, watch closely, if sedted by meds, may need to re-intubate (3) Intentional overdose of drug in tablet form Code(s): T50.902A - POISONING BY UNSP DRUG/MEDS/BIOL SUBST, SELF-HARM, INIT Status: Acute Comment: baclofen, atenolol, losartan, by history (4) Bipolar 1 disorder Code(s): F31.9 - BIPOLAR DISORDER, UNSPECIFIED Status: Chronic (5) Schizophrenia Code(s): F20.9 - SCHIZOPHRENIA, UNSPECIFIED Status: Chronic Qualifiers: Schizophrenia type: unspecified Qualified Code(s): F20.9 - Schizophrenia, unspecified (6) CITLALI (acute kidney injury) Code(s): N17.9 - ACUTE KIDNEY FAILURE, UNSPECIFIED Status: Acute Comment: Cr 0.8 up to 1.70, down to 1.5 to 1.36 to 1.03. monitor, hydrate - Plan cont current plan of care, plan discussed w/ family, PT/OT, social science professor, respiratory therapy * .
[2017-11-12] MEDS: Ziprasidone 20 MG VIAL IM PRN (11:34)
[2017-11-12] MEDS ORDERED: Valproate Sodium 500 MG in Sodium Chloride 0.9% 100 ML IVPB SCH (12:22)
[2017-11-12] MEDS: Lorazepam 2 MG/ML VIAL SLOW IVP PRN ×6 (12:29→21:20)
[2017-11-12] MEDS: hydrALAZINE 20 MG/ML VIAL SLOW IVP PRN ×2 (16:04→21:16)
[2017-11-12] MEDS: LURASIDONE 20 MG PO SCH (21:04)
[2017-11-13] MEDS: Lorazepam 2 MG/ML VIAL SLOW IVP PRN ×14 (00:21→23:44)
[2017-11-13] MEDS: Piperacillin/Tazobactam 3.375 GM in Sodium Chloride 0.9% 100 ML IVPB SCH ×4 (02:53→21:27)
[2017-11-13 05:21] LABS: Band 3 % (5-11); Hemoglobin 11.2 g/dL (12.0-16.0); Lymphocytes 5 % (21-51); MDiff Complete? YES; Mean Corpuscular HGB CONC 34.7 g/dL (32.0-36.0); Mean Corpuscular Hemoglobin 33.3 pg (27.0-31.0); Monocytes 4 % (0-10); Neutrophil 88 % (42-75); Platelet Count 161 thou/uL (130-400); RBC Distribution Width 11.6 % (11.5-14.5); Red Blood Cell (RBC) Count 3.35 mill/uL (4.20-5.40)
[2017-11-13 05:33] LABS: ALT (SGPT) 23 U/L (8-55); AST (SGOT) 22 U/L (5-34); Albumin 3.5 g/dL (3.5-5.0); Alkaline Phosphatase 59 U/L (40-150); Anion Gap 14 mmol/L (10-20); BUN (Urea Nitrogen) 21 mg/dL (7.0-18.7); Bilirubin, Total 1.1 mg/dL (0.2-1.2); Calc. Creatinine Clearance 0 mL/min (70-130); Calcium 9.1 mg/dL (7.8-10.44); Carbon Dioxide 20 mmol/L (22-29); Chloride 111 mmol/L (98-107); Estimated GFR-MDRD 62; Globulin 3.3 g/dL (2.4-3.5); Glucose 103 mg/dL (70-105); Protein, Total 6.8 g/dL (6.0-8.3); Sodium 141 mmol/L (136-145)
--- NOTE | 2017-11-13 08:04 | PRG ---
DATE OF SERVICE: 11/13/2017 The patient was extubated yesterday. She has been floridly psychotic since extubation. She is requi ring 4-point restraints secondary to her risk for injuring herself and for injuring the nursing staff taking care of her. She is currently on a Precedex drip. She is also getting Geodon and Ativan. S he does seem more calm compared to yesterday. PHYSICAL EXAMINATION: VITAL SIGNS: Temperature 97.5, pulse 66, blood pressure 168/97. 24 hour intake 2169, output 3295. HEENT: Unremarkable. NECK: No JVD. LUNGS: Coarse breath sounds. CARDIAC: S1 and S2 regular. ABDOMEN: Soft. EXTREMITIES: No edema. Her chest x-ray shows no mass, effusion or infiltrate. LABORATORY DATA: White blood cell count 10, hematocrit 32, platelet count 161. Sodium 141, potassiu m 4, chloride 109, CO2 20, BUN 21, creatinine 1.0, glucose 103. ASSESSMENT: 1. Psychosis, which is likely from combination of bipolar disorder and schizophrenia. 2. Status post overdose with multiple substances. 3. Possible aspiration pneumonia, although her x-ray appears to be clearing rapidly. 4. Correcting metabolic acidosis. PLAN: 1. She will remain in restraints until she is felt to be less of a safety risk. 2. Continue Precedex drip, IV Depakote, Geodon and Ativan. 3. Continue IV antibiotics. 4. I have discontinued the steroids that were started by Dr. Landon, as I think this is probably worse parvin her psychosis. 5. Family was updated yesterday.
[2017-11-13] MEDS: Enoxaparin Sodium 40 MG/0.4 ML SYRINGE SC SCH (09:05)
[2017-11-13] MEDS: Famotidine 20 MG TAB PO SCH ×2 (09:06→21:27)
[2017-11-13] MEDS: risperiDONE 0.25 MG TAB PO SCH ×2 (09:07→21:36)
[2017-11-13] MEDS: Valproate Sodium 250 mg/5 ml UD Cup PER TUBE SCH (09:07)
[2017-11-13] MEDS: Valproate Sodium 500 MG in Sodium Chloride 0.9% 100 ML IVPB SCH (09:07)
--- NOTE | 2017-11-13 09:29 | RAD ---
CHEST 1 VIEW: HISTORY: Dyspnea. Followup. COMPARISON: 11/12/17. FINDINGS: Cardiac silhouette remains magnified. Pulmonary vasculature upper limits of normal. Patchy bibasila r infiltrates are unchanged. Mediastinum is midline. Endotracheal catheter and nasogastric tube are no longer visible. IMPRESSION: 1. Interval removal of the endotracheal catheter and nasogastric tube. 2. Patchy bilateral infiltrates and other findings are otherwise stable. POS: [facility]
[2017-11-13] MEDS: Thiamine HCl 200 MG/2 ML VIAL SLOW IVP SCH (10:58)
[2017-11-13] MEDS: Sodium Chloride 0.45% 1,000 ML IV SCH (10:59)
[2017-11-13] MEDS: Ziprasidone 20 MG VIAL IM PRN ×2 (11:26→21:39)
[2017-11-13] MEDS: hydrALAZINE 20 MG/ML VIAL SLOW IVP PRN (17:32)
[2017-11-13] MEDS: LURASIDONE 20 MG PO SCH (21:36)
[2017-11-13] MEDS: Sterile Water 10 ML VIAL FS PRN (21:39)
[2017-11-14] MEDS: Lorazepam 2 MG/ML VIAL SLOW IVP PRN ×14 (01:25→23:02)
[2017-11-14] MEDS: Ziprasidone 20 MG VIAL IM PRN ×3 (01:25→20:36)
[2017-11-14] MEDS: Sodium Chloride 0.45% 1,000 ML IV SCH ×2 (02:01→08:59)
[2017-11-14] MEDS: Piperacillin/Tazobactam 3.375 GM in Sodium Chloride 0.9% 100 ML IVPB SCH ×4 (04:29→20:41)
[2017-11-14] MEDS: hydrALAZINE 20 MG/ML VIAL SLOW IVP PRN (04:30)
[2017-11-14 06:21] LABS: ALT (SGPT) 28 U/L (8-55); AST (SGOT) 28 U/L (5-34); Albumin 3.5 g/dL (3.5-5.0); Alkaline Phosphatase 54 U/L (40-150); Anion Gap 15 mmol/L (10-20); BUN (Urea Nitrogen) 22 mg/dL (7.0-18.7); Band 6 % (5-11); Bilirubin, Total 1.3 mg/dL (0.2-1.2); Calc. Creatinine Clearance 102 mL/min (70-130); Carbon Dioxide 19 mmol/L (22-29); Chloride 114 mmol/L (98-107); Eosinophils 1 % (0-10); Estimated GFR-MDRD 71; Globulin 3.4 g/dL (2.4-3.5); Glucose 80 mg/dL (70-105); Hemoglobin 12.3 g/dL (12.0-16.0); Lymphocytes 15 % (21-51); MDiff Complete? YES; Mean Corpuscular Hemoglobin 33.1 pg (27.0-31.0); Mean Corpuscular Volume 97.3 fl (81.0-99.0); Mean Platelet Volume 8.2 fL (7.4-10.4); Monocytes 12 % (0-10); Neutrophil 66 % (42-75); Platelet Count 177 thou/uL (130-400); Potassium 3.4 mmol/L (3.5-5.1); Protein, Total 6.9 g/dL (6.0-8.3); RBC Distribution Width 11.4 % (11.5-14.5); Red Blood Cell (RBC) Count 3.72 mill/uL (4.20-5.40); Sodium 145 mmol/L (136-145); White Blood Cell (WBC) Count 9.5 thou/uL (4.8-10.8)
[2017-11-14] MEDS: Famotidine 20 MG TAB PO SCH ×2 (08:00→20:37)
[2017-11-14] MEDS: Valproate Sodium 500 MG in Sodium Chloride 0.9% 100 ML IVPB SCH (08:01)
[2017-11-14] MEDS: Enoxaparin Sodium 40 MG/0.4 ML SYRINGE SC SCH (08:01)
[2017-11-14] MEDS: risperiDONE 0.25 MG TAB PO SCH ×2 (08:01→20:37)
[2017-11-14] MEDS: Valproate Sodium 250 mg/5 ml UD Cup PER TUBE SCH (08:59)
--- NOTE | 2017-11-14 09:17 | RAD ---
CHEST 1 VIEW: History Respiratory distress. Ventilated patient. COMPARISON: 11/13/17. FINDINGS: Portable supine chest demonstrates a normal cardiac silhouette. Persistent opacification of the righ t lung base. No pneumothorax. Expansion of the posterior 8th rib is presumed to be due to a healing /healed rib fracture. IMPRESSION: No significant change. POS: [facility]
[2017-11-14] MEDS: Thiamine HCl 200 MG/2 ML VIAL SLOW IVP SCH (09:43)
--- NOTE | 2017-11-14 13:52 | PDOC.PN ---
- Subjective Encounter Start Date: 11/13/17 Encounter Start Time: 13:30 -: non-verbal Pt finally sleeping soundly, HR tachy, but improved, BP ok. h no f/c, no N/V/D/C. still confused when awake, getting haldol, geodon, ativan plus reg po meds. no family at bedsdie at present, pooaj extuabtion well otherwise. On precedex low dose ROS not obtainable - Objective Resuscitation Status: Resuscitation Status FULL:Full Resuscitation MAR Reviewed: Yes Vital Signs & Weight: Vital Signs (12 hours) Temp Pulse Resp BP Pulse Ox 11/14/17 12:00 98.2 F 11/14/17 08:00 98.2 F 109 H 20 95 11/14/17 04:30 114 H 180/119 H 11/14/17 04:00 98.5 F Weight Admit Weight 178 lb Weight 162 lb 7.691 oz Most Recent Monitor Data Heart Rate from ECG 102 NIBP 159/99 NIBP BP-Mean 123 Respiration from ECG 16 SpO2 95 I&O: 11/13/17 11/14/17 11/15/17 06:59 06:59 06:59 Intake Total 2169.7 2616.0 120 Output Total 3295 3800 940 Balance -1125.3 -1184.0 -820 Result Diagrams: 11/14/17 05:35 11/14/17 05:35 Radiology Reviewed by me: Yes Phys Exam - Physical Examination Constitutional: NAD HEENT: moist MMs, sclera anicteric Neck: no nodes, no JVD, supple, full ROM Respiratory: no wheezing, no rales, no rhonchi, clear to auscultation bilateral Cardiovascular: RRR, no significant murmur, no rub tachy Gastrointestinal: soft, non-tender, no distention, positive bowel sounds Musculoskeletal: pulses present, edema present Lymphatic: no nodes Skin: no rash, normal turgor, cap refill <2 seconds Dx/Plan (1) Toxic metabolic encephalopathy Code(s): G92 - TOXIC ENCEPHALOPATHY Status: Acute Comment: Still confused, and Agitated, Geodon IM PRN, IV ativan, precedex gtt, haldol (2) Acute hypoxemic respiratory failure Code(s): J96.01 - ACUTE RESPIRATORY FAILURE WITH HYPOXIA Status: Acute Comment: extubated, watch closely, if sedated by meds, may need to re-intubate (3) Intentional overdose of drug in tablet form Code(s): T50.902A - POISONING BY UNSP DRUG/MEDS/BIOL SUBST, SELF-HARM, INIT Status: Acute Comment: baclofen, atenolol, losartan, by history (4) Bipolar 1 disorder Code(s): F31.9 - BIPOLAR DISORDER, UNSPECIFIED Status: Chronic (5) Schizophrenia Code(s): F20.9 - SCHIZOPHRENIA, UNSPECIFIED Status: Chronic Qualifiers: Schizophrenia type: unspecified Qualified Code(s): F20.9 - Schizophrenia, unspecified (6) CITLALI (acute kidney injury) Code(s): N17.9 - ACUTE KIDNEY FAILURE, UNSPECIFIED Status: Acute Comment: Cr 0.8 up to 1.70, down to 1.5 to 1.36 to 1.03. monitor, hydrate - Plan cont current plan of care, social human services assistants * .
--- NOTE | 2017-11-14 13:56 | PDOC.PN ---
- Subjective Encounter Start Date: 11/14/17 Encounter Start Time: 11:00 -: non-verbal about the same as yesterday, no acute events, just mor of the same. Pt sleeping with meds, less agitated when awake. no F/c, no N/V/D/C, still disoriented ROS not obtainable - Objective Resuscitation Status: Resuscitation Status FULL:Full Resuscitation MAR Reviewed: Yes Vital Signs & Weight: Vital Signs (12 hours) Temp Pulse Resp BP Pulse Ox 11/14/17 12:00 98.2 F 11/14/17 08:00 98.2 F 109 H 20 95 11/14/17 04:30 114 H 180/119 H 11/14/17 04:00 98.5 F Weight Admit Weight 178 lb Weight 162 lb 7.691 oz Most Recent Monitor Data Heart Rate from ECG 102 NIBP 159/99 NIBP BP-Mean 123 Respiration from ECG 16 SpO2 95 I&O: 11/13/17 11/14/17 11/15/17 06:59 06:59 06:59 Intake Total 2169.7 2616.0 120 Output Total 3295 3800 940 Balance -1125.3 -1184.0 -820 Result Diagrams: 11/14/17 05:35 11/14/17 05:35 Radiology Reviewed by me: Yes Phys Exam - Physical Examination Constitutional: NAD HEENT: PERRLA, moist MMs, sclera anicteric, oral pharynx no lesions Neck: no nodes, no JVD, supple, full ROM Respiratory: no wheezing, no rales, no rhonchi, clear to auscultation bilateral Cardiovascular: RRR, no significant murmur, no rub Gastrointestinal: soft, non-tender, no distention, positive bowel sounds Musculoskeletal: pulses present, edema present Neurological: non-focal, moves all 4 limbs Lymphatic: no nodes Skin: no rash, normal turgor, cap refill <2 seconds Dx/Plan (1) Toxic metabolic encephalopathy Code(s): G92 - TOXIC ENCEPHALOPATHY Status: Acute Comment: Still confused, and Agitated, Geodon IM PRN, IV ativan, precedex gtt, haldol (2) Acute hypoxemic respiratory failure Code(s): J96.01 - ACUTE RESPIRATORY FAILURE WITH HYPOXIA Status: Acute Comment: extubated, watch closely, if sedated by meds, may need to re-intubate (3) Intentional overdose of drug in tablet form Code(s): T50.902A - POISONING BY UNSP DRUG/MEDS/BIOL SUBST, SELF-HARM, INIT Status: Acute Comment: baclofen, atenolol, losartan, by history (4) Bipolar 1 disorder Code(s): F31.9 - BIPOLAR DISORDER, UNSPECIFIED Status: Chronic (5) Schizophrenia Code(s): F20.9 - SCHIZOPHRENIA, UNSPECIFIED Status: Chronic Qualifiers: Schizophrenia type: unspecified Qualified Code(s): F20.9 - Schizophrenia, unspecified (6) CITLALI (acute kidney injury) Code(s): N17.9 - ACUTE KIDNEY FAILURE, UNSPECIFIED Status: Acute Comment: Cr 0.8 up to 1.70, down to 1.5 to 1.36 to 1.03. monitor, hydrate - Plan * .
[2017-11-14] MEDS: LURASIDONE 20 MG PO SCH (20:37)
--- NOTE | 2017-11-14 21:51 | PRG ---
DATE OF SERVICE: 11/14/2017 SUBJECTIVE: Malik remains in 4-point restraints. She is very abusive when she is awake. OBJECTIVE: VITAL SIGNS: Heart rate 80, blood pressure is 168/91, respiratory rate in the teens to low 20s. LUNGS: Clear. HEART: Regular rhythm. ABDOMEN: Soft. LABORATORY DATA: White count 9.5, hemoglobin 12.3, platelets 177. Sodium 145, potassium 3.4, chlor hernandez 114, bicarb 19, BUN 22, creatinine 0.9. IMPRESSION: 1. Encephalopathy? psychotic behavior. 2. Intention drug overdose. 3. History of bipolar disorder, combined with schizophrenia. 4. Intravascular volume depletion on presentation. PLAN: Continue supportive care. She is stable from critical care standpoint. The biggest issues ar e combative, abusive behavior, and requirement for restraints.
[2017-11-15] MEDS: Lorazepam 2 MG/ML VIAL SLOW IVP PRN ×7 (00:02→13:12)
[2017-11-15] MEDS: Sodium Chloride 0.45% 1,000 ML IV SCH ×3 (02:16→18:30)
[2017-11-15] MEDS: Piperacillin/Tazobactam 3.375 GM in Sodium Chloride 0.9% 100 ML IVPB SCH ×4 (03:06→21:14)
[2017-11-15 04:55] LABS: Band 2 % (5-11); Eosinophils 5 % (0-10); Hemoglobin 12.5 g/dL (12.0-16.0); Lymphocytes 27 % (21-51); MDiff Complete? YES; Mean Corpuscular HGB CONC 35.1 g/dL (32.0-36.0); Mean Corpuscular Hemoglobin 33.7 pg (27.0-31.0); Mean Corpuscular Volume 96.1 fl (81.0-99.0); Mean Platelet Volume 8.3 fL (7.4-10.4); Monocytes 7 % (0-10); Neutrophil 59 % (42-75); Platelet Count 207 thou/uL (130-400); RBC Distribution Width 11.2 % (11.5-14.5); Red Blood Cell (RBC) Count 3.71 mill/uL (4.20-5.40); White Blood Cell (WBC) Count 8.2 thou/uL (4.8-10.8)
[2017-11-15 05:02] LABS: ALT (SGPT) 46 U/L (8-55); AST (SGOT) 40 U/L (5-34); Albumin 3.6 g/dL (3.5-5.0); Alkaline Phosphatase 59 U/L (40-150); Anion Gap 15 mmol/L (10-20); BUN (Urea Nitrogen) 18 mg/dL (7.0-18.7); Bilirubin, Total 1.1 mg/dL (0.2-1.2); Calc. Creatinine Clearance 103 mL/min (70-130); Calcium 9.2 mg/dL (7.8-10.44); Carbon Dioxide 22 mmol/L (22-29); Chloride 113 mmol/L (98-107); Estimated GFR-MDRD 72; Globulin 3.6 g/dL (2.4-3.5); Glucose 83 mg/dL (70-105); Potassium 3.3 mmol/L (3.5-5.1); Protein, Total 7.2 g/dL (6.0-8.3); Sodium 147 mmol/L (136-145)
[2017-11-15] MEDS: Enoxaparin Sodium 40 MG/0.4 ML SYRINGE SC SCH (07:50)
[2017-11-15] MEDS: Famotidine 20 MG TAB PO SCH ×2 (07:51→21:12)
[2017-11-15] MEDS: risperiDONE 0.25 MG TAB PO SCH ×2 (08:00→21:20)
[2017-11-15] MEDS: Valproate Sodium 500 MG in Sodium Chloride 0.9% 100 ML IVPB SCH (09:14)
[2017-11-15] MEDS: Ziprasidone 20 MG VIAL IM PRN (09:28)
[2017-11-15] MEDS: Sterile Water 10 ML VIAL FS PRN (09:29)
--- NOTE | 2017-11-15 11:34 | RAD ---
CHEST 1 VIEW: HISTORY: Ventilated patient. Respiratory distress. COMPARISON: 11/14/17. FINDINGS: Normal cardiac silhouette. The lungs and pleural spaces are clear. No pneumothorax or osseous abnor malities. IMPRESSION: No significant interval change. POS: [facility]
[2017-11-15] MEDS: hydrALAZINE 20 MG/ML VIAL SLOW IVP PRN (12:41)
[2017-11-15] MEDS: Thiamine HCl 200 MG/2 ML VIAL SLOW IVP SCH (12:42)
--- NOTE | 2017-11-15 13:42 | PDOC.PN ---
- Subjective Encounter Start Date: 11/15/17 Encounter Start Time: 11:10 -: non-verbal Pt sleeping soundly, sedated with PRN meds. HR actually normal, DBP elevated at 100. no F/C, no N/V/d/C, still grossly cnfused and combative when awake. No F/c, no n/V/D/c, no CP or SOB Mom at bedside, updated ROS not obtainable due to encephalopathy, agitation and combativeness - Objective Resuscitation Status: Resuscitation Status FULL:Full Resuscitation MAR Reviewed: Yes Vital Signs & Weight: Vital Signs (12 hours) Temp Pulse Resp Pulse Ox 11/15/17 12:41 84 11/15/17 12:00 98.2 F 11/15/17 08:00 98.4 F 84 16 98 11/15/17 07:00 98.4 F Weight Admit Weight 178 lb Weight 162 lb 7.691 oz Most Recent Monitor Data Heart Rate from ECG 88 NIBP 170/109 NIBP BP-Mean 134 Respiration from ECG 25 SpO2 93 I&O: 11/14/17 11/15/17 11/16/17 06:59 06:59 06:59 Intake Total 2616.0 2203 200 Output Total 3800 3505 495 Balance -1184.0 -1302 -295 Result Diagrams: 11/15/17 03:35 11/15/17 03:35 Phys Exam - Physical Examination Constitutional: NAD HEENT: PERRLA, moist MMs, sclera anicteric, oral pharynx no lesions Neck: no nodes, no JVD, supple, full ROM exp wheezes, coarse BS, no rales Cardiovascular: RRR, no significant murmur, no rub Gastrointestinal: soft, non-tender, no distention, positive bowel sounds Musculoskeletal: pulses present, edema present Neurological: non-focal, normal sensation, moves all 4 limbs Lymphatic: no nodes Skin: no rash, normal turgor, cap refill <2 seconds Dx/Plan (1) Toxic metabolic encephalopathy Code(s): G92 - TOXIC ENCEPHALOPATHY Status: Acute Comment: Still confused, and Agitated, Geodon IM PRN, IV ativan, precedex gtt, haldol (2) Acute hypoxemic respiratory failure Code(s): J96.01 - ACUTE RESPIRATORY FAILURE WITH HYPOXIA Status: Acute Comment: extubated, watch closely, if sedated by meds, may need to re-intubate (3) Intentional overdose of drug in tablet form Code(s): T50.902A - POISONING BY UNSP DRUG/MEDS/BIOL SUBST, SELF-HARM, INIT Status: Acute Comment: baclofen, atenolol, losartan, by history (4) Bipolar 1 disorder Code(s): F31.9 - BIPOLAR DISORDER, UNSPECIFIED Status: Chronic (5) Schizophrenia Code(s): F20.9 - SCHIZOPHRENIA, UNSPECIFIED Status: Chronic Qualifiers: Schizophrenia type: unspecified Qualified Code(s): F20.9 - Schizophrenia, unspecified (6) CITLALI (acute kidney injury) Code(s): N17.9 - ACUTE KIDNEY FAILURE, UNSPECIFIED Status: Acute Comment: Cr 0.8 up to 1.70, down to 1.5 to 1.36 to 1.03. monitor, hydrate - Plan * .
--- NOTE | 2017-11-15 15:10 | PRG ---
DATE OF SERVICE: 11/15/2017 SUBJECTIVE: I have not made much progress with Ms. Pablo with regards to her combative behavior an d her encephalopathy. I am not sure that this had no psychotic behavior from what I have been told. In the event, she required a lot, significant dosing of Ativan last night. PHYSICAL EXAMINATION: Lungs, heart, and abdomen as well as vital signs remain essentially unchanged. PLAN: Place her on Haldol combined with Ativan at 4-hour intervals routinely, stopped Geodon. Hopef ully, we can get her controlled this way and then gradually increase the interval of those drugs or c hange to other drugs.
[2017-11-15] MEDS: Lorazepam 2 MG/ML VIAL SLOW IVP SCH ×3 (15:26→22:23)
[2017-11-15] MEDS: Haloperidol Lactate 5 MG/ML VIAL IM SCH ×3 (15:27→22:23)
[2017-11-15] MEDS: LURASIDONE 20 MG PO SCH (21:12)
[2017-11-16] MEDS: Haloperidol Lactate 5 MG/ML VIAL IM SCH ×6 (02:29→22:43)
[2017-11-16] MEDS: Lorazepam 2 MG/ML VIAL SLOW IVP SCH ×6 (02:34→22:37)
[2017-11-16] MEDS: Piperacillin/Tazobactam 3.375 GM in Sodium Chloride 0.9% 100 ML IVPB SCH (02:34)
[2017-11-16 05:51] LABS: ALT (SGPT) 37 U/L (8-55); AST (SGOT) 26 U/L (5-34); Albumin 3.3 g/dL (3.5-5.0); Alkaline Phosphatase 50 U/L (40-150); Anion Gap 12 mmol/L (10-20); BUN (Urea Nitrogen) 14 mg/dL (7.0-18.7); Calc. Creatinine Clearance 110 mL/min (70-130); Calcium 8.8 mg/dL (7.8-10.44); Carbon Dioxide 21 mmol/L (22-29); Chloride 114 mmol/L (98-107); Estimated GFR-MDRD 74; Globulin 3.2 g/dL (2.4-3.5); Glucose 95 mg/dL (70-105); Potassium 3.5 mmol/L (3.5-5.1); Protein, Total 6.5 g/dL (6.0-8.3); Sodium 143 mmol/L (136-145)
[2017-11-16 06:06] LABS: Band 8 % (5-11); Eosinophils 2 % (0-10); Hemoglobin 11.9 g/dL (12.0-16.0); Lymphocytes 20 % (21-51); MDiff Complete? YES; Mean Corpuscular Hemoglobin 32.7 pg (27.0-31.0); Mean Corpuscular Volume 96.2 fl (81.0-99.0); Mean Platelet Volume 8.4 fL (7.4-10.4); Monocytes 5 % (0-10); Neutrophil 65 % (42-75); Platelet Count 215 thou/uL (130-400); RBC Distribution Width 11.4 % (11.5-14.5); Red Blood Cell (RBC) Count 3.63 mill/uL (4.20-5.40); White Blood Cell (WBC) Count 7.7 thou/uL (4.8-10.8)
[2017-11-16] MEDS ORDERED: DC Sedation Protocol FS ONE (08:48)
--- NOTE | 2017-11-16 09:03 | PRG ---
DATE OF SERVICE: 11/16/2017 She is extubated, but remains agitated. PHYSICAL EXAMINATION: VITAL SIGNS: Pulse 88, blood pressure is 120/80, sats are 90%, respirations 18. CHEST: Chest reveals decreased breath sounds, no wheezing. CARDIAC: Normal S1, S2, no gallops. ABDOMEN: Soft, no masses. IMPRESSION: 1. Status post pneumonia. 2. Status post overdose. 3. Respiratory failure. 4. Major agitation. PLAN: [facility] will be consulted. I pretty much started her home medicine. Her long-term prognosis is guarded. I have increased the risperidone to 100 mg twice a day. I will follow. One-half hour critical care time.
[2017-11-16] MEDS: Enoxaparin Sodium 40 MG/0.4 ML SYRINGE SC SCH (09:26)
[2017-11-16] MEDS: Famotidine 20 MG TAB PO SCH ×2 (09:26→21:01)
[2017-11-16] MEDS: Amoxicillin/Potassium Clav 500 MG TAB PO SCH ×2 (09:26→21:01)
[2017-11-16] MEDS: Valproate Sodium 500 MG in Sodium Chloride 0.9% 100 ML IVPB SCH (09:27)
[2017-11-16] MEDS: Thiamine HCl 200 MG/2 ML VIAL SLOW IVP SCH (09:27)
[2017-11-16] MEDS: risperiDONE 1 MG TAB PO SCH ×2 (09:27→21:02)
[2017-11-16 12:23] VITALS: BMI 28.8
--- NOTE | 2017-11-16 14:51 | PDOC.PN ---
- Subjective Encounter Start Date: 11/16/17 Encounter Start Time: 14:40 Subjective: Patient less agitated today. Still in restraints. [facility] evaluated and -: recommends [facility], may be able to arrange another bed if can get patient -: off restraints. Patient denies pain, N/V, or respiratory difficulty. - Objective Resuscitation Status: Resuscitation Status FULL:Full Resuscitation Vital Signs & Weight: Vital Signs (12 hours) Temp Pulse Resp Pulse Ox 11/16/17 12:00 97.5 F L 11/16/17 08:00 97.3 F L 75 15 95 11/16/17 04:16 93 L 11/16/17 04:00 98.2 F Weight Admit Weight 178 lb Weight 167 lb 12.348 oz Most Recent Monitor Data Heart Rate from ECG 117 NIBP 155/95 NIBP BP-Mean 108 Respiration from ECG 20 SpO2 95 I&O: 11/15/17 11/16/17 11/17/17 06:59 06:59 06:59 Intake Total 2203 2833 917.6 Output Total 3505 2940 860 Balance -1302 -107 57.6 Result Diagrams: 11/16/17 04:35 11/16/17 04:35 Phys Exam - Physical Examination Constitutional: NAD HEENT: moist MMs Respiratory: no wheezing, no rales, no rhonchi Cardiovascular: RRR, no significant murmur Gastrointestinal: soft, non-tender Neurological: non-focal, moves all 4 limbs Psychiatric: normal affect, A&O x 3 Dx/Plan (1) Intentional overdose of drug in tablet form Code(s): T50.902A - POISONING BY UNSP DRUG/MEDS/BIOL SUBST, SELF-HARM, INIT Status: Acute Comment: baclofen, atenolol, losartan, by history (2) Acute hypoxemic respiratory failure Code(s): J96.01 - ACUTE RESPIRATORY FAILURE WITH HYPOXIA Status: Resolved Comment: extubated and doing well (3) Toxic metabolic encephalopathy Code(s): G92 - TOXIC ENCEPHALOPATHY Status: Acute Comment: improved with less agitation, Geodon IM PRN, IV ativan, weaning precedex gtt, haldol (4) CITLALI (acute kidney injury) Code(s): N17.9 - ACUTE KIDNEY FAILURE, UNSPECIFIED Status: Resolved (5) Bipolar 1 disorder Code(s): F31.9 - BIPOLAR DISORDER, UNSPECIFIED Status: Chronic (6) Schizophrenia Code(s): F20.9 - SCHIZOPHRENIA, UNSPECIFIED Status: Chronic Qualifiers: Schizophrenia type: unspecified Qualified Code(s): F20.9 - Schizophrenia, unspecified - Plan cont current plan of care Await [facility] bed availability -: Can transfer to medical if sitter available -: Once precidex out of system and still calm can try releasing restraints. * . - Discharge Day Encounter end time: 14:50
[2017-11-16] MEDS: LURASIDONE 20 MG PO SCH (21:02)
[2017-11-17] MEDS: Sodium Chloride 0.45% 1,000 ML IV SCH (00:14)
[2017-11-17] MEDS: Haloperidol Lactate 5 MG/ML VIAL IM SCH ×2 (03:41→05:44)
[2017-11-17] MEDS: Lorazepam 2 MG/ML VIAL SLOW IVP SCH ×5 (03:42→14:26)
[2017-11-17] MEDS ORDERED: Nicotine 7 MG PATCH TOP SCH (08:00)
[2017-11-17] MEDS ORDERED: DC Sedation Protocol FS ONE (08:49)
[2017-11-17] MEDS: Amoxicillin/Potassium Clav 500 MG TAB PO SCH (09:44)
[2017-11-17] MEDS: Enoxaparin Sodium 40 MG/0.4 ML SYRINGE SC SCH (09:44)
[2017-11-17] MEDS: Valproate Sodium 500 MG in Sodium Chloride 0.9% 100 ML IVPB SCH (09:44)
[2017-11-17] MEDS: Famotidine 20 MG TAB PO SCH (09:44)
[2017-11-17] MEDS: risperiDONE 1 MG TAB PO SCH (09:44)
[2017-11-17] MEDS: Thiamine HCl 200 MG/2 ML VIAL SLOW IVP SCH (09:45)
--- NOTE | 2017-11-17 09:47 | PRG ---
DATE OF SERVICE: 11/17/2017 She is awake, alert, responsive, no longer agitated. She has been off pretty much all the sedation e xcept for the home psych medicine. PHYSICAL EXAMINATION: VITAL SIGNS: Blood pressure 140/92, sats are 95 on room air, temperature is 98, pulse 111. GENERAL: Awake, alert, responsive. She wants her Novoa out. CHEST: Chest revealed decreased breath sounds, no wheezing. CARDIAC: Normal S1, S2, no gallops. ABDOMEN: Soft, no masses. IMPRESSION: 1. Bipolar schizophrenic. 2. Status post overdose. 3. Alcohol and substance abuse. PLAN: Discussed with the mother. She wants to send her to an inpatient alcohol or drug abuse area r ather than inpatient psych hospital. Discussed with social science professor. Continue supportive care and PT. Antibiotics for 5 days. Pulmonary Critical Care will follow at a distance. Please call as needed.
--- NOTE | 2017-11-17 09:49 | PDOC.PN ---
- Subjective Encounter Start Date: 11/17/17 Encounter Start Time: 11:30 Subjective: Patient without complaints. Heart rate elevated overnight, but denies -: chest pain, anxiety, shortness of breath or other symptoms. She has -: been off restraints and has been accepted by [facility]. - Objective Resuscitation Status: Resuscitation Status FULL:Full Resuscitation MAR Reviewed: Yes Vital Signs & Weight: Vital Signs (12 hours) Temp Pulse Resp BP Pulse Ox 11/17/17 07:10 98.7 F 111 H 16 148/92 H 95 11/17/17 04:00 98.2 F 90 20 150/94 H 97 11/17/17 00:00 98.3 F 120 H 20 135/79 94 L Weight Admit Weight 178 lb Weight 167 lb 6.4 oz Most Recent Monitor Data Heart Rate from ECG 146 NIBP 159/98 NIBP BP-Mean 115 Respiration from ECG 22 SpO2 96 I&O: 11/16/17 11/17/17 11/18/17 06:59 06:59 06:59 Intake Total 2833 2328.6 Output Total 2940 3445 Balance -107 -1116.4 Result Diagrams: 11/16/17 04:35 11/16/17 04:35 EKG Reviewed by me: Yes (Sinus tach at 110, no sig arrhythmia) Phys Exam - Physical Examination Constitutional: NAD HEENT: moist MMs Respiratory: no wheezing, no rales, no rhonchi Cardiovascular: no significant murmur mild tachycardia, regular Gastrointestinal: soft, positive bowel sounds Neurological: non-focal, moves all 4 limbs Psychiatric: normal affect, A&O x 3 Dx/Plan (1) Intentional overdose of drug in tablet form Code(s): T50.902A - POISONING BY UNSP DRUG/MEDS/BIOL SUBST, SELF-HARM, INIT Status: Acute Comment: baclofen, atenolol, losartan, by history (2) Acute hypoxemic respiratory failure Code(s): J96.01 - ACUTE RESPIRATORY FAILURE WITH HYPOXIA Status: Resolved Comment: extubated and doing well (3) Toxic metabolic encephalopathy Code(s): G92 - TOXIC ENCEPHALOPATHY Status: Acute Comment: improved with less agitation, Geodon IM PRN, IV ativan, weaning precedex gtt, haldol (4) CITLALI (acute kidney injury) Code(s): N17.9 - ACUTE KIDNEY FAILURE, UNSPECIFIED Status: Resolved (5) Bipolar 1 disorder Code(s): F31.9 - BIPOLAR DISORDER, UNSPECIFIED Status: Chronic (6) Schizophrenia Code(s): F20.9 - SCHIZOPHRENIA, UNSPECIFIED Status: Chronic Qualifiers: Schizophrenia type: unspecified Qualified Code(s): F20.9 - Schizophrenia, unspecified (7) Tachycardia Code(s): R00.0 - TACHYCARDIA, UNSPECIFIED Status: Acute Comment: likely related to drug and alcohol withdrawl, will check EKG, monitor, continue Ativan as needed - Plan cont current plan of care Accepted at [facility], awaiting doc to doc. * . - Discharge Day Encounter end time: 11:45
[2017-11-17 16:40] VITALS: BP 154/101; TEMP 98.3
--- NOTE | 2017-11-18 08:21 | DIS ---
PRIMARY CARE PHYSICIAN: Sierra Gongora NP REASON FOR ADMISSION: Intentional overdose. DISCHARGE DIAGNOSES: 1. Intentional overdose, drugs and tablet for including baclofen, atenolol, and losartan. 2. Acute hypoxemic respiratory failure, resolved. 3. Toxic-metabolic encephalopathy, resolved. 4. Acute kidney injury, resolved. 5. Bipolar 1 disorder. 6. Schizophrenia. 7. Sinus tachycardia. 8. Aspiration pneumonia, resolved. PROCEDURE: CT of the brain showing no acute findings. CONSULTATION: Pulmonology, Dr. Landon. PERTINENT LABORATORY: Creatinine bumped up to 1.7, down to 0.8 at discharge. She did have a slight elevated white blood cell count that was 14,000, down to 10,000 at discharge. Urine toxicology showe d cannabinoids. Plasma alcohol level was 99 on admission. SUMMARY OF HOSPITAL COURSE: This is a 32-year-old female with a past history of hypertension, bipola r disorder, alcohol dependence, and schizophrenia who has been off her medication for an extended per iod of time. She was brought into her [place] [facility] after she got into her grandfather 's medicine cabinet and took multiple pills including baclofen, atenolol, losartan. She was taken to the [place] [facility], where she was found to be bradycardic and GCS of 5. She was intuba brandee at that time and she was then transferred over here for admission. The patient was admitted to [facility] ICU. Dr. Landon cared for her in the ICU. She was eventually able to be weaned off the vent and ex tubated. After extubation, she was quite agitated. She was given large doses of benzodiazepines and thought to be in alcohol and drug withdrawal. She did become very violent with the nurses and had t o be put in restraints; however, over the next 24 hours, she calmed down and the restraints were slow ly able to be removed. She has been calm and without restraints for 24 hours in the hospital here. She has had a persistent tachycardia since extubation in the low 100s without any chest pain, shortne ss of breath, anxiety, or other symptoms. This is thought likely be due to alcohol and drug withdraw al. She has not had any other symptoms. She had an EKG, which was normal except for the sinus tachy cardia. She has been cleared for discharge. The patient was accepted at [facility] and I did just do a doc to doc with a doctor in there. DISCHARGE MANAGEMENT: Discharged to [facility]. ACTIVITY: As tolerated. DIET: Regular diet. FOLLOWUP: Follow up with Sierra Gongora after getting out of [facility]. MEDICATIONS: 1. Augmentin 500 mg twice a day for 10 days. 2. Risperdal 1 mg twice a day. 3. Depakote ER 500 mg daily.
--- NOTE | 2017-11-18 20:19 | EKG ---
Test Reason : Blood Pressure : / mmHG Vent. Rate : 110 BPM Atrial Rate : 110 BPM P-R Int : 124 ms QRS Dur : 070 ms QT Int : 332 ms P-R-T Axes : 064 010 010 degrees QTc Int : 449 ms Sinus tachycardia Septal infarct (cited on or before 08-NOV-2017) Abnormal ECG When compared with ECG of 08-NOV-2017 04:45, (Unconfirmed) T wave inversion more evident in Inferior leads Nonspecific T wave abnormality now evident in Lateral leads Confirmed by SILVINA ARMENTA (2) on 11/18/2017 8:19:38 PM Referred By: JOSE Confirmed By:SILVINA ARMENTA
--- NOTE | 2017-11-21 15:01 | EKG ---
Test Reason : INTUBATED Blood Pressure : / mmHG Vent. Rate : 079 BPM Atrial Rate : 079 BPM P-R Int : 194 ms QRS Dur : 074 ms QT Int : 400 ms P-R-T Axes : 049 -11 029 degrees QTc Int : 458 ms Normal sinus rhythm Septal infarct , age undetermined Abnormal ECG Confirmed by CHRISTEN CERDA, WILLIAM ([id number]), fashion editor SYLVIA LUEVANO ([id number]) on 11/21/2017 3:01:15 PM Referred By: Confirmed By:WILLIAM VELÁSQUEZ MD
== END 2017-11-17 17:07 | DRG 917 ==
LOC: ERS 03:55 → ERHOLD 05:05 → CCU 07:59 → T4-A 11-16 17:43
PROVIDERS: ADMIT Internal Medicine; ATTEND Internal Medicine
DX: T42.8X2A Poisoning by antiparkinsonism drugs and other central muscle-tone depressants, intentional self-harm, initial encounter (principal); J96.01 Acute respiratory failure with hypoxia; J69.0 Pneumonitis due to inhalation of food and vomit; G92 Toxic encephalopathy; N17.9 Acute kidney failure, unspecified; E87.2 Acidosis; T44.7X2A Poisoning by beta-adrenoreceptor antagonists, intentional self-harm, initial encounter; T46.5X2A Poisoning by other antihypertensive drugs, intentional self-harm, initial encounter; F31.9 Bipolar disorder, unspecified; F20.9 Schizophrenia, unspecified; R00.0 Tachycardia, unspecified; I10 Essential (primary) hypertension; F10.10 Alcohol abuse, uncomplicated; F29 Unspecified psychosis not due to a substance or known physiological condition; R45.1 Restlessness and agitation
CPT/HCPCS: 36415; 36416; 51702; 70450; 71045; 80053; 80164; 80306; 80307; 82140; 82550; 82553; 82805; 83690; 83735; 84100; 84443; 84484; 84703; 85007; 85027; 93005; 93010; 94002; 94003; 96365; 96366; A4216; G8996-GN-CI; G8997-GN-CH; J0360; J1630; J1650; J2060; J2543; J2704; J2920; J3411; J3475; J3480; J3486; J7042; J7050

== ENCOUNTER 2020-06-30 16:45 | Emergency (ER) | payer SELFPAY ==
[2020-06-30 18:06] LABS: #Basophils 0.1 thou/uL (0.0-0.2); #Eosinphils 0.4 thou/uL (0.0-0.7); #Lymphocytes 3.9 thou/uL (1.20-3.40); #Monocytes 0.6 thou/uL (0.11-0.59); #Neutrophils 3.3 thou/uL (1.40-6.50); %Basophils 1.5 % (0.0-1.0); %Eosinophils 5.2 % (0.0-10.0); %Lymphocytes 46.2 % (21.0-51.0); %Monocytes 7.3 % (0.0-10.0); %Neutrophils 39.7 % (42.0-75.0); Hemoglobin 12.8 g/dL (12.0-16.0); Mean Corpuscular HGB CONC 33.4 g/dL (32.0-36.0); Mean Corpuscular Hemoglobin 32.6 pg (27.0-31.0); Mean Corpuscular Volume 97.9 fL (78.0-98.0); Mean Platelet Volume 7.3 fL (7.4-10.4); Platelet Count 270 thou/uL (130-400); RBC Distribution Width 11.1 % (11.5-14.5); Red Blood Cell (RBC) Count 3.94 mill/uL (4.20-5.40); White Blood Cell (WBC) Count 8.4 thou/uL (4.8-10.8)
[2020-06-30 18:22] LABS: Amphetamine Detected (NotDetected); Barbiturates Screen Not Detected (NotDetected); Benzodiazepine Screen Not Detected (NotDetected); Cocaine Metabolite Screen Not Detected (NotDetected); Medtox Control Line Valid? VALID (VALID); Medtox Reader # READER 4; Methadone Not Detected (NotDetected); Methamphetamine Detected (NotDetected); Opiate Screen Not Detected (NotDetected); Oxycodone Screen Not Detected (NotDetected); Phencyclidine (PCP) Not Detected (NotDetected); THC/Cannabinoid Screen Not Detected (NotDetected); Tricyclic Screen Not Detected (NotDetected)
[2020-06-30 18:30] LABS: ALT (SGPT) 23 U/L (8-55); AST (SGOT) 21 U/L (5-34); Acetaminophen Less than 6.0 mcg/mL (10.0-30.0); Albumin 4.5 g/dL (3.5-5.0); Alcohol 191 mg/dL (Less than 10); Alkaline Phosphatase 66 U/L (40-110); Anion Gap 18 mmol/L (10-20); BUN (Urea Nitrogen) 9 mg/dL (7.0-18.7); Bilirubin, Total 0.3 mg/dL (0.2-1.2); CK (CPK) 107 U/L (29-168); Calc. Creatinine Clearance 0 mL/min (70-130); Calcium 8.8 mg/dL (7.8-10.44); Carbon Dioxide 26 mmol/L (22-29); Chloride 105 mmol/L (98-107); Globulin 3.2 g/dL (2.4-3.5); Glucose 99 mg/dL (70-105); Potassium 3.3 mmol/L (3.5-5.1); Protein, Total 7.7 g/dL (6.0-8.3); Salicylate Less than 8.0 mg/dL (15.0-30.0); Sodium 146 mmol/L (136-145)
[2020-07-01 00:18] LABS: Pregnancy Test - Urine (BHCG) Negative (Negative)
[2020-07-01 00:19] LABS: Pregu Control Background? CLEAR/WHITE (CLR/WHITE); Pregu Control Bar Appear? YES (CONTROL BAR); Specific Gravity 1.016 (1.002-1.036)
== END 2020-07-01 02:20 | disposition home or self-care (01) ==
LOC: ERS 16:45
DX: S41.112A Laceration without foreign body of left upper arm, initial encounter (principal); I10 Essential (primary) hypertension; F17.210 Nicotine dependence, cigarettes, uncomplicated; W26.8XXA Contact with other sharp object(s), not elsewhere classified, initial encounter
CPT/HCPCS: 12005; 36415; 80053; 80306; 80307; 81025; 82550; 84443; 85025

== ENCOUNTER 2020-12-16 12:02 | Emergency (ER) | payer OTHER, SELFPAY ==
[2020-12-16 12:48] LABS: #Basophils 0.1 thou/uL (0.0-0.2); #Eosinphils 0.2 thou/uL (0.0-0.7); #Lymphocytes 1.8 thou/uL (1.20-3.40); #Monocytes 0.9 thou/uL (0.11-0.59); #Neutrophils 6.7 thou/uL (1.40-6.50); %Basophils 0.7 % (0.0-1.0); %Eosinophils 2.4 % (0.0-10.0); %Lymphocytes 18.5 % (21.0-51.0); %Monocytes 9.4 % (0.0-10.0); Hemoglobin 11.4 g/dL (12.0-16.0); Mean Corpuscular Hemoglobin 32.2 pg (27.0-31.0); Mean Corpuscular Volume 97.6 fL (78.0-98.0); Mean Platelet Volume 7.7 fL (7.4-10.4); Platelet Count 276 thou/uL (130-400); RBC Distribution Width 12.4 % (11.5-14.5); Red Blood Cell (RBC) Count 3.54 mill/uL (4.20-5.40); White Blood Cell (WBC) Count 9.7 thou/uL (4.8-10.8)
[2020-12-16 12:50] LABS: BHCG - Serum Negative (NEGATIVE); Pregs Control Background? CLEAR/WHITE (CLR/WHITE); Pregs Control Bar Appear? YES (CONTROL BAR)
[2020-12-16 13:11] LABS: ALT (SGPT) 16 U/L (8-55); AST (SGOT) 12 U/L (5-34); Albumin 3.8 g/dL (3.5-5.0); Alkaline Phosphatase 51 U/L (40-110); Anion Gap 12 mmol/L (10-20); BUN (Urea Nitrogen) 9 mg/dL (7.0-18.7); Bilirubin, Total 0.2 mg/dL (0.2-1.2); Calc. Creatinine Clearance 0 mL/min (70-130); Carbon Dioxide 27 mmol/L (22-29); Chloride 107 mmol/L (98-107); Globulin 3.3 g/dL (2.4-3.5); Glucose 87 mg/dL (70-105); Potassium 4.5 mmol/L (3.5-5.1); Protein, Total 7.1 g/dL (6.0-8.3); Sodium 141 mmol/L (136-145)
[2020-12-16] MEDS ORDERED: Dexamethasone 4 mg/ml Vial ONE (14:40)
[2020-12-16] MEDS ORDERED: Clindamycin/D5W 900 mg/50 ml Premix Bag ONE (14:40)
[2020-12-16] MEDS ORDERED: Iopamidol-370 76% 500 ML 1 ML ONE (15:17)
== END 2020-12-16 15:30 ==
LOC: EEVIPCON 12:02 → ERS 12:02
DX: K04.7 Periapical abscess without sinus (principal); K02.9 Dental caries, unspecified; Z79.899 Other long term (current) drug therapy; I10 Essential (primary) hypertension; F17.210 Nicotine dependence, cigarettes, uncomplicated
CPT/HCPCS: 36415; 70487; 80053; 83605; 84703; 85025; 87040; 96365; 96375; J1100; J3490; Q9967